=== PATIENT | female | born 1975 | race Caucasian/White ===

== ENCOUNTER 2017-12-27 13:21 | Emergency (ER) | payer OTHER ==
[~2017-12-27] VITALS: Ht 172.7 cm; Wt 85.0 kg
[2017-12-27] MEDS ORDERED: OXYcodone/APAP 5/325MG TABLET PO ONE (14:00)
[2017-12-27] MEDS ORDERED: KETOROLAC 30 MG/1 ML IM ONE (14:00)
[2017-12-27] MEDS ORDERED: KETOROLAC 30 MG/1 ML ONE (14:02)
[2017-12-27] MEDS ORDERED: OXYcodone/APAP 5/325MG TABLET ONE (14:02)
[2017-12-27] MEDS ORDERED: ONDANSETRON ODT 4 MG PO ONE (15:30)
[2017-12-27] MEDS ORDERED: ONDANSETRON ODT 4 MG ONE (16:00)
[2017-12-27] MEDS ORDERED: MORPHINE SULFATE 4 MG/ML, 1ML ONE ×3 (16:00→19:38)
[2017-12-27] MEDS: MORPHINE SULFATE 4 MG/ML, 1ML IVPush PRN ×2 (16:03→18:15)
[2017-12-27] MEDS ORDERED: BACITRACIN ZINC OINT 500U/GM, 0.9 GM ONE (16:05)
[2017-12-27] MEDS ORDERED: SODIUM CHLORIDE FLUSH 10ML SYR IVF ONE (16:30)
[2017-12-27 17:51] VITALS: BP 150/85
[2017-12-27] MEDS ORDERED: MORPHINE SULFATE 4 MG/ML, 1ML IVPush PRN (20:00)
== END 2017-12-27 19:53 | disposition home or self-care (01) ==
LOC: ED 18:16
DX: S82.132A Displaced fracture of medial condyle of left tibia, initial encounter for closed fracture (principal); X50.1XXA Overexertion from prolonged static or awkward postures, initial encounter; Y93.89 Activity, other specified; Y92.69 Other specified industrial and construction area as the place of occurrence of the external cause; Y99.0 Civilian activity done for income or pay
CPT/HCPCS: 73564; 73590; 73700; 93922; 96372; 96374; 96376; 99284; J1885; Q0162